=== PATIENT | male | born 2005 | race Caucasian/White ===

== ENCOUNTER 2024-11-22 12:46 | Emergency (ER) | payer SELFPAY ==
[2024-11-22] VITALS (10 sets, daily range): BP systolic 114–164; BP diastolic 52–86; PULSE 54–82; RESP 16–20; TEMP 36.6–37; O2SAT 96–100; BMI 26.4
--- NOTE | 2024-11-22 13:09 | ED_ITS ---
<Statement entered by Melody Valadez DO - 11/25/24 17:41> I was consulted by the ZANDRA, and we discussed the complexity of problems being addressed. I approve the treatment and management plan for this patient's care in the emergency department, thus performing a substantial portion of the medical decision making. Melody Valadez DO Discharge Plan Disposition Patient Disposition: Home, Self-Care Prescriptions Prescriptions: New meloxicam 7.5 mg tablet 7.5 mg PO DAILY 7 Days Qty: 7 0RF Referrals Follow up/Referrals: Provider,Referral, MD [Primary Care Provider, Medical] - See instructions Activity Restrictions/Add. Instructions Additional Instructions/Restrictions: Today you were evaluated in the ED and had a chest pain workup. Your workup is negative, please follow up with your PCP within 24 hours. Return to the ED for worsening of condition. Clinical Impressions Clinical Impression: Chest pain Stand Alone Forms Stand Alone Forms: Work/School Release Instructions Patient Instructions: DI for Atypical Chest Pain Print Language Print Language: Amharic Discharge ED Provider: Melody Valadez General Adult HPI General Chief complaint: Weakness Stated complaint: SOA Jaspercorya, Weakness Time Seen by Provider: 11/22/24 13:09 Mode of Arrival: Ambulatory Source of Information: Patient Description of Symptoms (Recalled from ER Triage Doc. by RN): pt presents to ED c/o weakness t/o body. pt states he also has a cough, congestion, denies fever. pt states initially this am he had chest pain that has since resolved. pt states when he had chest pain the pain was located in the center of his chest, denies pain radiating. History of Present Illness HPI narrative: patient is a 19-year-old male PMHx tobacco use x 5 years (cigarettes and vape) who presents to the ED for complaints of chest pain, shortness of breath, increased fatigue, dizziness since this morning. Patient states the chest pain which he describes as sharp and stabbing woke him up out of his sleep, he has had palpitations and feels like my heart is racing in a NASCAR race . Related Data Previous Rx's ?Medication ?Instructions ?Recorded meloxicam 7.5 mg tablet 7.5 mg PO DAILY 7 days #7 ta bs 11/22/24 Allergies Allergy/AdvReac Type Severity Reaction Status Date / Time tizanidine Allergy Intermediate Anaphylaxis Verified 11/22/24 14:46 [facility] Disclaimer: The information contained in this section may have been updated after the patient was seen, as this information can be updated by other users. Social History Smoking Status: Former smoker alcohol intake: never current occupational status: unemployed Travel in the last 8 weeks?: None ROS Obtained: Yes Systems reviewed as appropriate & no additional complaints except as documented Physical Exam General General appearance: alert Head Head exam: atraumatic Eye Eye exam: Present PERRL Neck Neck exam: Present full ROM Respiratory Respiratory exam: Present normal lung sounds bilaterally; Absent respiratory distress Cardiovascular Cardiovascular exam: Present regular rate Abdominal Exam Abdominal exam: Present soft; Absent distention or tenderness Extremities Exam Extremities exam: Present full ROM Back Exam Back exam: Present full ROM Neurological Exam Neurological exam: Present alert and oriented X3 Skin Skin exam: Present warm Medical Decision Making Medical Records Screening: Per USPSTF and CDC recommendations, given the prevalence of disease in our region, it is our hospital?s policy to screen for HIV and viral Hepatitis for all patients aged 18 and over and those with ongoing risk factors. Devaughn Inquiry Pt receiving controlled substance: No Vital Signs: 11/22/24 13:02 11/22/24 13:30 11/22/24 14:00 Temperature 98.6 F Temperature Source Oral Pulse Rate 77 82 Pulse Rate [Right Radial] 76 Respiratory Rate 20 18 19 Blood Pressure 153/56 H 153/80 H Blood Pressure [Right Arm] 164/71 H Blood Pressure Mean [Right Arm] 102 Blood Pressure Source Automatic Cuff Blood Pressure Source [Right Arm] Automatic Cuff Blood Pressure Position Sitting Blood Pressure Position [Right Arm] Sitting 02 Sat by Pulse Oximetry 97 96 99 Oxygen Delivery Method Room Air Room Air Room Air 11/22/24 14:30 Temperature Temperature Source Pulse Rate 67 Pulse Rate [Right Radial] Respiratory Rate 18 Blood Pressure 153/60 H Blood Pressure [Right Arm] Blood Pressure Mean [Right Arm] Blood Pressure Source Blood Pressure Source [Right Arm] Blood Pressure Position Blood Pressure Position [Right Arm] 02 Sat by Pulse Oximetry 97 Oxygen Delivery Method Room Air Lab Data Lab Results 11/22/24 13:12: WBC 6.6, RBC 4.85, Hgb 14.1, Hct 41.0 L, MCV 84.5, MCH 29.1, MCHC 34.4, RDW 12.6, Plt Count 214, MPV 9.8, Neut % (Auto) 53.2, Lymph % (Auto) 32.0, [place]renac % (Auto) 7.3, Eos % (Auto) 6.1, Baso % (Auto) 0.9, Neut # (Auto) 3.5, Lymph # (Auto) 2.1, Arenac # (Auto) 0.5, Eos # (Auto) 0.4, Baso # (Auto) 0.1, D- Dimer 0.62 H, Sodium 141, Potassium 3.8, Chloride 109 H, Carbon Dioxide 27, Anion Gap 8.8, BUN 12, Creatinine 1.00, Estimated Creat Clear 142, Estimated GFR 94, Est GFR ( Amer) 114, Glucose 93, Calcium 8.8, Total Bilirubin 0.4, AST 36, ALT 39, Alkaline Phosphatase 65, Troponin I < 0.01, Total Protein 6.3, Albumin 4.1, Globulin 2.2, Albumin/Globulin Ratio 1.9 H, HCV Ab KRYSTYNA w/Rflx PCR Qn Negative, HIV Ag/Ab Combo Qual Negative 11/22/24 13:17: SARS-CoV-2 (PCR) Not detected, Influenza A Untype (PCR) Not detected, Influenza Type B (PCR) Not detected 11/22/24 16:20: Troponin I < 0.01 11/22/24 13:12 11/22/24 13:12 Orders (Tests/Meds): ED MEDICATIONS Discontinued Medications Generic Name Dose Route Start Last Admin Trade Name Freq PRN Reason Stop Dose Admin Acetaminophen 1,000 mg 11/22/24 14:02 11/22/24 14:33 Acetaminophen 500mg Tab PO 11/22/24 14:03 1,000 mg ONCE ONE Administration Iopamidol 80 ml 11/22/24 14:19 11/22/24 14:20 Iopamidol-370 (76%);100ml Bottle IV 11/22/24 14:20 80 ml ONCE ONE Administration Lidocaine 1 each 11/22/24 14:02 11/22/24 14:30 Lidocaine 5% Transdermal Patch TD 11/22/24 14:03 1 each ONCE ONE Administration Methocarbamol 500 mg 11/22/24 14:03 11/22/24 14:48 Methocarbamol 500mg Tablet PO 11/22/24 14:04 500 mg ONCE ONE Administration Sodium Chloride 50 ml 11/22/24 14:19 11/22/24 14:20 0.9 % Sodium Chloride 50 Ml Vial IV 11/22/24 14:20 50 ml ONCE ONE Administration Sodium Chloride 10 ml 11/22/24 14:19 11/22/24 14:20 Sodium Chloride 0.9% 10ml Syr (Rad Only) IV 11/22/24 14:20 10 ml ONCE ONE Administration ORDERS Category Date Time Status CTA Chest [CT angio chest PE protocol] Stat Cat Scan 11/22/24 13:58 Completed CXR --portable [XR chest portable] Stat Exams 11/22/24 13:10 Completed Complete Blood Count Auto Diff Stat Lab 11/22/24 13:12 Completed Comprehensive Metabolic Panel Stat Lab 11/22/24 13:12 Completed D-Dimer Stat Lab 11/22/24 13:12 Completed HIV Combo Stat Lab 11/22/24 13:12 Completed Hepatitis C Ab Qual. W/ RFX Stat Lab 11/22/24 13:12 Completed Rapid PCR Covid and Flu A/B Stat Lab 11/22/24 13:17 Completed Troponin I Q3H Lab 11/22/24 16:20 Completed Troponin I Q3H Lab 11/22/24 19:15 Ordered Troponin I Stat Lab 11/22/24 13:12 Completed Medical Decision Narrative: In summary, patient is a 19-year-old male PMHx tobacco use x 5 years (cigarettes and vape) who presents to the ED for complaints of chest pain, shortness of breath, increased fatigue, dizziness since this morning. Patient states the chest pain which he describes as sharp and stabbing woke him up out of his sleep, he has had palpitations and feels like my heart is racing in a NASCAR race . Patient denies any history of blood clots. Denies any history of ACS. 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 He denies fever, chills, headache, visual disturbances, posterior neck pain, abdominal pain, nausea, vomiting. Patient states that at baseline, he has chronic back pain however no new change in back pain as of today. Upon initial evaluation patient is alert, oriented and cooperative. He is hemodynamically stable, oxygen saturation 100%. Physical exam unremarkable. No chest wall tenderness upon exam. Differential diagnosis include pulmonary embolism, ACS, dissection, pneumonia, infectious process, pleurisy, viral illness, among others. Discussed with patient we will proceed with labs, chest x-ray, EKG. CBC unremarkable for any leukocytosis, stable H&H. CMP overall unremarkable for any actionable abnormalities. First troponin < 0.01. D-dimer 0.62, will proceed with CT PE. COVID, influenza negative. Chest x-ray unremarkable for any acute findings. Chest CTA unremarkable for any pulmonary embolism or dissection or aneurysm. Upon reassessment, patient's condition has improved. He is sleeping upon entering room. Discussed with him that his workup is overall unremarkable, advised him I sent meloxicam to the pharmacy. We discussed following up with PCP within 24 to 48 hours. Discussed return precautions to the ED. he was hemodynamically stable and ambulatory without difficulty upon leaving the ED. Critical Care Critical Care Time Critical Care Time: No
--- NOTE | 2024-11-22 13:10 | XR_ITS ---
FINAL REPORT CLINICAL HISTORY: soa COMPARISON: None FINDINGS: No acute pulmonary opacity is present. There is no evidence of effusion or pneumothorax. Mediastinum is unremarkable. Heart size is normal. IMPRESSION: No acute abnormality. Reviewed, Interpreted and Dictated by Kina Ann MD Transcribed by Patricia Nicholson Authenticated and [facility]
--- OUTSIDE RECORDS SUMMARY | 2024-11-22 13:13 | XMS_ITS | Clinical Summary ---
Author Organization [facility] Address [address] [place] [id number] Care Team Providers Care Machine Fixer Name Role Phone Stan Oakley M.D. Primary Care Provider [phone] Source Comments [facility] is fully rolled out with thefollowing exceptions:General Clinical Research [facility] Allergies No known active allergies Medications cetirizine (ZyrTEC) 10 MG tablet Take 10 mg by mouth. Active montelukast (SINGULAIR) 10 MG tablet Take 10 mg by mouth. Active fluticasone propionate (FLONASE) 50 MCG/ACT nasal spray Give 2 Sprays into each side of nose 1 time a day as needed. Active lisinopril (PRINIVIL) 10 MG tablet Take 1 tablet (10 mg total) by mouth 1 time a day. 30 tablet 11 03/01/2021 Active Active Problems Problem Noted Date Diagnosed Date Syncope 07/16/2020 Elevated blood pressure read ing without diagnosis of hypertension 07/16/2020 Family History Medical History Relation Name Comments Well/Healthy Brother 1 Well/Healthy Brother 2 Well/Healthy Brother 3 Well/Healthy Brother 4 Well/Healthy Brother 5 Hypertension Father Hypertension Maternal Grandfather Well/Healthy Maternal Grandmother Well/Healthy Mother Heart Disease Paternal Grandmother Relation Name Status Comments Brother 1 Alive Brother 2 Alive Brother 3 Alive Brother 4 Alive Brother 5 Alive Father Alive Maternal Grandfather Alive Maternal Grandmother Alive Mother Alive Paternal Grandfather Alive unknown Paternal Grandmother Alive unsure what type of heart problem Social History Tobacco Use Types Packs/Day Years Used Date Smoking Tobacco: Smoker, Current Status Unknown Smokeless Tobacco: Never Alcohol Use Standard Drinks/Week Comments Never 0 (1 standard drink = 0.6 oz pur e alcohol) AUDIT-C Answer Date Recorded Q1: How often do you have a drink containing alc ohol? Never 07/20/2020 Average Number of Drinks Not on file Frequency of Binge Drinking Not on file 07/09 Intimate Partner Violence Answer Date R ecorded If you are in a relationship , do you feel safe in that relationship? Yes 03/01/2021 Safe in relationship? (18 and older) Not on file 03/01/2021 Safety and Environment Answer Date Jasbir rded Do you have any concerns of physical abuse, sexual abuse, or neglect of your child? No 03/01/2021 Is an adult hurting you or your family? No 03/01/2021 Has someone ever touched you in a sexual way that was not ok with you? No 03/01/2021 Someone hurting you or family (18 and older) Not on file 03/01/2021 Historical abuse worry Not on file If you have firearms in the home, are they all in locked storage AND unloaded? Not on file 03/01/2021 (RETIRED 01/2022) Guns In Home Not on file 1 05/01/2020 (RETIRED 01/2022) Guns Unloaded or Locked Away N ot on file 03/01/2021 Sex and Gender Information Value Date Recorded Sex Assigned at Not on file Legal Sex Male 2:36 PM EDT Gender Identity Not on file Sexual Orientation Not on file Last Filed Vital Signs Vital Sign Reading Time Taken Comments Blood Pressure 139/67 03/01/2021 10:34 AM EST Pulse 76 03/01/2021 10:34 AM EST Temperature - - Respiratory Rate 16 03/01/2021 10:34 AM EST Oxygen Saturation 99% 03/01/2021 10:34 AM EST Inhaled Oxygen Concentration - - Weight 94.3 kg (208 lb) 03/01/2021 10:34 AM EST Height 181 cm (5' 11.25 ) 03/01/2021 10:34 AM ES T Body Mass Index 28.81 03/01/2021 10:34 AM EST Plan of Treatment Health Maintenance Due Date Last Done Comments MMR IMMUNIZATION (1 of 1 - S tandard series) 06/13/2004 DTAP/Tdap/Td IMMUNIZATION (1 - Tdap) 06/13/2010 VARICELLA IMMUNIZATION (1 of 2 - 13+ 2-dose series) 06/13/2016 HPV IMMUNIZATION (1 - Male 3 -dose series) 06/13/2018 MENINGOCOCCAL B VACCINE (1 o f 2 - Standard) 2019 HEPATITIS B IMMUNIZATION (1 of 3 - 19+ 3-dose series) 06/13/2022 COVID-19 Vaccine (1 - 2023-2 5 season) 2023 AMB SEASONAL FLU VACCINE (#1) 02/08/2025 HIB IMMUNIZATION Aged Out No longer e ligible based on patient's age to complete this topic IPV IMMUNIZATION Aged Out No longer e ligible based on patient's age to complete this topic MCV4 IMMUNIZATION Aged Out No longer eligible based on patient's age to complete this topic PNEUMOCOCCAL IMMUNIZATION Aged Out No longer eligible based on patient's age to complete this topic Respiratory Syncytial Virus (RSV) <20mo Aged Out No longer eligible b ased on patient's age to complete this topic Insurance [facility] Care Teams Machine Fixer Relationship Specialty Start Date End Date Stan Oakley M.D. [address] [facility] [address] [place], [place] [id number] (work) PCP - General 07/15/20
--- NOTE | 2024-11-22 13:14 | ECG_ITS ---
APPROVED REPORT Exam: Resting ECG HR:80 bpm ECG Measurements Heart Rate 80 AXES AR 177 P 66 QRSd 102 QRS 73 QT 339 T 32 QTc 375 Conclusion SINUS RHYTHM WITH SINUS ARRHYTHMIA POSSIBLE RIGHT VENTRICULAR CONDUCTION DELAY [RSR (QR) IN V1/V2] NONSPECIFIC ST ELEVATION [0.05+ mV ST ELEVATION] BORDERLINE ECG UNCONFIRMED REPORT Electronically signed by : EB MEIER, 11/23/2024 06:55:08
[2024-11-22 13:20] LABS: Coronavirus 19, PCR Not Detected (NotDetected); Influenza A, PCR Not Detected (NotDetected); Influenza B, PCR Not Detected (NotDetected)
[2024-11-22 13:21] LABS: Hematocrit 41.0 % (42.0-52.0); Hemoglobin 14.1 g/dL (14.1-18.0); Immature Granulocytes % 0.5 %; Mean Corpuscular HGB Conc 34.4 g/dL (31.8-35.4); Mean Corpuscular Hemoglobin 29.1 pg (27.0-31.2); Mean Corpuscular Volume 84.5 fl (80-94); Nucleated Red Blood Cells % 0 %; Platelet Count 214 K/mm3 (142-424); Red Blood Count 4.85 M/mm3 (4.60-6.20); Red Cell Distribution Width-SD 38.6 fL; White Blood Count 6.6 K/mm3 (4.8-10.8)
[2024-11-22 13:33] LABS: Alanine Aminotransferase 39 U/L (12-78); Albumin Level 4.1 g/dl (3.5-5.0); Albumin/Globulin Ratio 1.9 (1.1-1.8); Alkaline Phosphatase 65 U/L (38-126); Anion Gap 8.8 mEq/L (5-15); Aspartate Amino Transferase 36 U/L (17-59); Bilirubin,Total 0.4 mg/dl (0.2-1.3); Blood Urea Nitrogen 12 mg/dl (9-20); Calcium 8.8 mg/dl (8.4-10.2); Carbon Dioxide 27 mmol/L (22.0-30.0); Chloride 109 mmol/L (98-107); Creatinine Clearance Estimated 142 mL/min (50-200); Creatinine,Serum 1.00 mg/dl (0.66-1.25); Estimated Glomerular Filt Rate 94 ml/min (>60); GFR (African American) 114 ML/MIN (>60); Globulin 2.2 g/dL (1.3-3.2); Glucose 93 mg/dl (74-100); Potassium 3.8 mmoL/L (3.5-5.1); Sodium 141 mmol/L (136-145); Total Protein,Serum 6.3 g/dl (6.3-8.2)
[2024-11-22 13:42] LABS: D-Dimer 0.62 ug/mL (0.0-0.5)
[2024-11-22 13:48] LABS: Troponin I < 0.01 ng/ml (0.00-0.034)
--- NOTE | 2024-11-22 13:58 | CT_ITS ---
FINAL REPORT TECHNIQUE: Thin section axial CT with contrast with multiplanar reconstruction This study was performed with techniques to keep radiation doses as low as reasonably achievable, (ALARA). Individualized dose reduction techniques using automated exposure control or adjustment of mA and/or kV according to the patient's size were employed. CLINICAL HISTORY: SOA/elevated dimer/CP COMPARISON: None FINDINGS: Pulmonary vessels enhance in normal fashion without evidence of embolism. Thoracic aorta shows no dissection or aneurysm. No pulmonary mass or infiltrate is present. There is no significant pleural effusion. There is no significant pericardial effusion. No mediastinal or hilar adenopathy is present. IMPRESSION: 1. No evidence of pulmonary embolism Reviewed, Interpreted and Dictated by Kina Ann MD Transcribed by Patricia Nicholson Authenticated and . [facility]
[2024-11-22] MEDS: IOPAMIDOL-370 (76%);100ML BOTTLE 80 ML IV (14:20)
[2024-11-22] MEDS: 0.9 % SODIUM CHLORIDE 50 ML VIAL IV (14:20)
[2024-11-22] MEDS: SODIUM CHLORIDE 0.9% 10ML SYR (RAD ONLY) 10 ML IV (14:20)
[2024-11-22] MEDS: LIDOCAINE 5% TRANSDERMAL PATCH 1 EACH TD (14:30)
[2024-11-22] MEDS: ACETAMINOPHEN 500MG TAB 1000 MG PO (14:33)
[2024-11-22] MEDS: METHOCARBAMOL 500MG TABLET 500 MG PO (14:48)
--- NOTE | 2024-11-22 14:52 | PC.NURSE ---
I called [facility] in [place], [place] to verifiy muscle relaxer that pt reports allergy to. Pharmacist states the only filled prescription was for Tizanidine in May 2023. I verified with pt this med name and time frame and he stated it was the muscle relaxer he had the reaction to. Allergy was updated in the chart and pt took Methocarbamol.
[2024-11-22 15:32] LABS: Hepatitis C Ab Qual. W/ RFX NEGATIVE (Negative)
[2024-11-22 17:01] LABS: Troponin I < 0.01 ng/ml (0.00-0.034)
== END 2024-11-22 17:25 | disposition home or self-care (01) ==
PROVIDERS: Nurse Practitioner; Emergency Provider Student in an Organized Health Care Education/Training Program
DX: R07.9 Chest pain, unspecified (principal); R06.02 Shortness of breath; R53.83 Other fatigue; R42 Dizziness and giddiness
CPT/HCPCS: 71045; 71275; 80053; 84484; 85025; 85378; 86803; 87389; 87636; 93005; 99285; Q9967